=== PATIENT | female | born 1945 | race Caucasian/White ===

== ENCOUNTER 2016-11-08 10:40 | Inpatient (IN) | payer OTHER ==
[~2016-11-08] VITALS: Ht 167.6 cm; Wt 68.6 kg
[2016-11-08] MEDS ORDERED: LISI-167 PO (11:22)
[2016-11-08] MEDS ORDERED: ASPIRIN 81 MG TABLET CHEW PO ONE (12:00)
[2016-11-08] MEDS ORDERED: ASPIRIN 81 MG TABLET CHEW ONE (12:00)
[2016-11-08 12:15] LABS: HEMOGLOBIN 15.6 g/dL (11.7-16.4)
[2016-11-08 12:27] LABS: BLOOD UREA NITROGEN 23 mg/dL (7-18)
[2016-11-08 12:32] LABS: IS PT STATUS REG ER OR PRE ER? YES
[2016-11-08] MEDS ORDERED: SODIUM CHLORIDE 0.9% 1,000 ML IV ONE (13:00)
[2016-11-08] MEDS ORDERED: NITROGLYCERIN OINT 2%, 1GM TP ONE (13:30)
[2016-11-08] MEDS ORDERED: morphine SULFATE 10 MG/ML, 1ML IV PRN (14:30)
[2016-11-08] MEDS ORDERED: ACETAMINOPHEN 650 MG/20.3 ML UDC PO PRN (14:30)
[2016-11-08] MEDS ORDERED: ONDANSETRON 2MG/ML, 2ML IVP PRN (14:30)
[2016-11-08] MEDS ORDERED: NITROGLYCERIN SINGLE TAB 0.4 MG SL PRN (14:30)
[2016-11-08 15:56] VITALS: BP 137/81
[2016-11-08] MEDS ORDERED: HEPARIN 5,000 UNITS/ML, 1ML IV ONE (16:30)
[2016-11-08] MEDS ORDERED: HEPARIN 25,000 UNITS/500ML PMX 500 ML IV PRN (16:30)
[2016-11-08 17:44] LABS: IS PT STATUS REG ER OR PRE ER? NO
[2016-11-08] MEDS: GUAIFENESIN 200 MG TABLET PO SCH ×2 (18:31→21:00)
[2016-11-08 19:30] VITALS: BP 137/80
[2016-11-08] MEDS ORDERED: OMNIPAQUE 350 MG/ML, 100ML BOTTLE ONE (20:24)
[2016-11-08] MEDS: SODIUM CHLORIDE FLUSH 10ML SYR IVF SCH (21:00)
[2016-11-08] MEDS: SODIUM CHLORIDE NASAL SPRAY 45ML BOTTLE NAS SCH (21:00)
[2016-11-08] MEDS: ATORVASTATIN 80 MG TABLET PO SCH (22:46)
[2016-11-08] MEDS: FAMOTIDINE 20 MG TABLET PO SCH (22:46)
[2016-11-09 00:33] LABS: IS PT STATUS REG ER OR PRE ER? NO
[2016-11-09] MEDS: HEPARIN 5,000 UNITS/ML, 1ML IV PRN ×2 (00:57→12:39)
[2016-11-09 01:30] VITALS: BP 102/67
[2016-11-09] MEDS: GUAIFENESIN 200 MG TABLET PO SCH ×4 (06:00→20:52)
[2016-11-09] MEDS: ASPIRIN 325 MG TABLET EC PO SCH (06:12)
[2016-11-09 08:30] VITALS: BP 110/74
[2016-11-09] MEDS: SODIUM CHLORIDE FLUSH 10ML SYR IVF SCH ×2 (09:55→20:51)
[2016-11-09] MEDS: LISINOPRIL 10 MG TABLET PO SCH (10:03)
[2016-11-09] MEDS: SODIUM CHLORIDE NASAL SPRAY 45ML BOTTLE NAS SCH ×2 (11:37→20:51)
[2016-11-09 12:55] VITALS: BP 118/74
[2016-11-09] MEDS ORDERED: VERAPAMIL 2.5 MG/ML, 2ML ONE (14:55)
[2016-11-09] MEDS ORDERED: MIDAZOLAM 1 MG/ML, 5ML ONE (14:55)
[2016-11-09] MEDS ORDERED: FENTANYL PF 100 MCG/2ML ONE (14:55)
[2016-11-09] MEDS ORDERED: BIVALIRUDIN 250 MG ONE ×2 (14:56→16:58)
[2016-11-09] MEDS ORDERED: LIDOCAINE 2%, 20ML ONE (14:56)
[2016-11-09] MEDS ORDERED: HEPARIN 1,000 UNITS/ML, 10ML ONE (14:56)
[2016-11-09] MEDS ORDERED: PRASUGREL 10 MG TABLET ONE (16:31)
[2016-11-09] MEDS ORDERED: BIVALIRUDIN 250 MG in DEXTROSE 5% 50 ML IV SCH (16:50)
[2016-11-09] MEDS: CARVEDILOL 3.125 MG TABLET PO SCH (17:52)
[2016-11-09 19:01] VITALS: BP 102/58
[2016-11-09] MEDS: ATORVASTATIN 80 MG TABLET PO SCH (20:51)
[2016-11-09] MEDS: FAMOTIDINE 20 MG TABLET PO SCH (20:52)
[2016-11-09 23:29] LABS: IS PT STATUS REG ER OR PRE ER? NO
[2016-11-10 02:36] VITALS: BP 98/61
[2016-11-10 05:36] LABS: BLOOD UREA NITROGEN 18 mg/dL (7-18)
[2016-11-10] MEDS: GUAIFENESIN 200 MG TABLET PO SCH ×2 (06:00→13:01)
[2016-11-10 06:03] LABS: HEMOGLOBIN 13.1 g/dL (11.7-16.4)
[2016-11-10] MEDS: ASPIRIN 325 MG TABLET EC PO SCH (06:22)
[2016-11-10] MEDS: CARVEDILOL 3.125 MG TABLET PO SCH (06:23)
[2016-11-10 08:46] VITALS: BP 101/66
[2016-11-10] MEDS ORDERED: PRASUGREL 10 MG TABLET PO SCH (09:00)
[2016-11-10] MEDS: SODIUM CHLORIDE NASAL SPRAY 45ML BOTTLE NAS SCH (10:06)
[2016-11-10] MEDS: SODIUM CHLORIDE FLUSH 10ML SYR IVF SCH (10:06)
[2016-11-10] MEDS: LISINOPRIL 10 MG TABLET PO SCH (10:06)
[2016-11-10 13:31] VITALS: BP 97/66
[2016-11-10] MEDS ORDERED: ASPI-650 PO (13:54)
[2016-11-10] MEDS ORDERED: SODI45SP5 NAS (13:54)
[2016-11-10] MEDS ORDERED: PRAS10TA4 PO (13:54)
[2016-11-10] MEDS ORDERED: NITR0.4T SL (13:54)
[2016-11-10] MEDS ORDERED: CARV3.1212 PO (13:54)
[2016-11-10] MEDS ORDERED: FAMO20TA7 PO (13:54)
[2016-11-10] MEDS ORDERED: GUAI200T3 PO (13:54)
[2016-11-10] MEDS ORDERED: ATOR80TA75 PO (13:54)
== END 2016-11-10 17:05 | disposition home or self-care (01) | DRG 247 ==
LOC: ED 13:23 → EDIP 13:24 → ED 13:29 → 5SO 15:54 → DCLOUNGE 11-10 16:34
PROVIDERS: ADMIT Hospitalist; ATTEND Hospitalist
PROC: 027136Z Dilation of Coronary Artery, Two Arteries with Three Drug-eluting Intraluminal Devices, Percutaneous Approach (ICD-10-PCS; principal; 2016-11-09)
PROC: 4A023N7 Measurement of Cardiac Sampling and Pressure, Left Heart, Percutaneous Approach (ICD-10-PCS; 2016-11-09)
PROC: B2111ZZ Fluoroscopy of Multiple Coronary Arteries using Low Osmolar Contrast (ICD-10-PCS; 2016-11-09)
PROC: B2151ZZ Fluoroscopy of Left Heart using Low Osmolar Contrast (ICD-10-PCS; 2016-11-09)
DX: I21.4 Non-ST elevation (NSTEMI) myocardial infarction (principal); K21.9 Gastro-esophageal reflux disease without esophagitis; F41.9 Anxiety disorder, unspecified; N81.4 Uterovaginal prolapse, unspecified; Z66 Do not resuscitate; Z79.899 Other long term (current) drug therapy; Z79.82 Long term (current) use of aspirin; G89.29 Other chronic pain; I11.9 Hypertensive heart disease without heart failure; I25.119 Atherosclerotic heart disease of native coronary artery with unspecified angina pectoris; J06.9 Acute upper respiratory infection, unspecified; Z87.891 Personal history of nicotine dependence
CPT/HCPCS: 36415; 71010; 71275; 80048; 80061; 82040; 84484; 85014; 85018; 85025; 85520; 85610; 85730; 93005; 93306; 93458; 96360; 96361; C1894; C9600; J0583; J1644; J2250; J3010; J3490; Q9967; C1725; C1769; C1874; C1887; J7030

== ENCOUNTER → 2017-08-09 | Outpatient (CLI) | payer OTHER ==
[~2017-08-09] MED LIST: ASPI-650 PO; ATOR-2 PO; CARV3.1212 PO; FAMO20TA7 PO; GUAI200T3 PO; LISI-167 PO; NITR0.4T SL; PRAS10TA4 PO; SODI45SP5 NAS
== END | disposition home or self-care (01) ==
LOC: CFH 11:29
PROVIDERS: ATTEND Family Medicine
DX: Z13.820 Encounter for screening for osteoporosis (principal); M85.88 Other specified disorders of bone density and structure, other site
CPT/HCPCS: 77080

== ENCOUNTER → 2018-04-30 | Outpatient (CLI) | payer OTHER ==
[~2018-04-30] MED LIST changes: +FENTANYL PF 100 MCG/2ML ONE; +FLUMAZENIL 0.1 MG/1 ML, 5ML ONE; +MIDAZOLAM 1 MG/ML, 5ML ONE; +NALOXONE 1 MG/ML, 2ML ONE
== END | disposition home or self-care (01) ==
LOC: RAD 07:48
PROVIDERS: ATTEND Nurse Practitioner Family
DX: M51.35 Other intervertebral disc degeneration, thoracolumbar region (principal); M43.8X4 Other specified deforming dorsopathies, thoracic region; M12.88 Other specific arthropathies, not elsewhere classified, other specified site
CPT/HCPCS: 72146; 72148; 99156; 99157; J2250; J3010; J2310

== ENCOUNTER → 2018-06-20 | Outpatient (CLI) | payer OTHER ==
[~2018-06-20] MED LIST changes: -FENTANYL PF 100 MCG/2ML ONE; -FLUMAZENIL 0.1 MG/1 ML, 5ML ONE; -MIDAZOLAM 1 MG/ML, 5ML ONE; -NALOXONE 1 MG/ML, 2ML ONE
== END | disposition home or self-care (01) ==
LOC: CFH 13:30
PROVIDERS: ATTEND Registered Nurse Registered Nurse First Assistant
DX: I25.10 Atherosclerotic heart disease of native coronary artery without angina pectoris (principal); I70.0 Atherosclerosis of aorta; M47.894 Other spondylosis, thoracic region; R10.9 Unspecified abdominal pain
CPT/HCPCS: 71250

== ENCOUNTER → 2018-07-11 | Outpatient (CLI) | payer OTHER | END | disposition home or self-care (01) | LOC: CFH 14:21 | PROVIDERS: ATTEND Registered Nurse Registered Nurse First Assistant | DX: I70.90 Unspecified atherosclerosis (principal) | CPT/HCPCS: 74150 ==

== ENCOUNTER → 2019-01-20 | Outpatient (CLI) | payer MEDICARE, OTHER ==
[~2019-01-20] MED LIST changes: -NITR0.4T SL; +NITR0.4T41 SL
== END | disposition home or self-care (01) ==
LOC: CFH 07:37
PROVIDERS: ATTEND Internal Medicine Cardiovascular Disease
DX: I08.3 Combined rheumatic disorders of mitral, aortic and tricuspid valves (principal); I25.10 Atherosclerotic heart disease of native coronary artery without angina pectoris; I10 Essential (primary) hypertension; E78.5 Hyperlipidemia, unspecified
CPT/HCPCS: 78452; 93017; 93306; A9502

== ENCOUNTER → 2020-12-07 | Outpatient (CLI) | payer MEDICARE ==
[~2020-12-07] MED LIST changes: -ASPI-650 PO; +ASPI325T20 PO; -GUAI200T3 PO; +GUAI200T37 PO
== END | disposition home or self-care (01) ==
LOC: CFH 06:55
PROVIDERS: ATTEND Internal Medicine Cardiovascular Disease
DX: I08.0 Rheumatic disorders of both mitral and aortic valves (principal); I25.10 Atherosclerotic heart disease of native coronary artery without angina pectoris; I25.5 Ischemic cardiomyopathy
CPT/HCPCS: 78452; 93017; 93306; A9502